=== PATIENT | female | born 1985 | race Caucasian/White ===

== ENCOUNTER 2016-09-07 11:55 | Outpatient (CLI) | payer OTHER ==
[~2016-09-07] VITALS: Ht 160 cm; Wt 83.9 kg
[2016-09-07 12:40] LABS: HEMOGLOBIN 8.3 gm/dl (12.3-15.3); RED BLOOD COUNT 3.5 M/UL (4.00-5.10); WHITE BLOOD COUNT 10.4 K/UL (4.5-11.0)
== END 2016-09-08 12:50 | disposition home or self-care (01) ==
LOC: GENOP 11:55
PROVIDERS: Obstetrics & Gynecology
DX: O41.03X0 Oligohydramnios, third trimester, not applicable or unspecified (principal); Z3A.33 33 weeks gestation of pregnancy; Z90.49 Acquired absence of other specified parts of digestive tract
CPT/HCPCS: 36415; 81001; 83518; 85025; 96360; 96361; 96374; C9113; J7120